=== PATIENT | female | born 1960 | race Two or more races ===

== ENCOUNTER 2018-06-05 18:14 | Emergency (ER) | payer SELFPAY ==
[~2018-06-05] VITALS: Ht 162.6 cm; Wt 70.3 kg
[2018-06-05 18:15] VITALS: BP 149/81
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
[2018-06-05] MEDS ORDERED: TYLENOL EXTRA500 MG ORAL (19:49)
[2018-06-05 20:00] VITALS: BP 139/79
[2018-06-05 20:08] VITALS: BP 139/79
--- NOTE | 2018-06-06 08:25 | Diagnostic Imaging Report ---
Indication: Pain status post injury Technique: Continuous helical CT scanning of the head was performed utilizing automated exposure control without intravenous contrast material. Axial and coronal reconstructions were obtained. Comparison: None CT dose: Total DLP 1340.9 mGycm; CTDI vol 70.38 mGy Findings: There is no acute intracranial hemorrhage, mass effect or cortical edema. No shift of midline structures. The ventricles, cisterns and sulci are within normal limits for age. Mastoid air cells are clear. Mild sinus mucosal thickening/debris. No evidence of acute calvarial fracture. Impression: No evidence of acute intracranial hemorrhage, mass effect or cortical edema. MRI may be obtained for more sensitive evaluation as clinically indicated. No depressed calvarial fracture. Mild paranasal sinus disease. This corresponds with the statrad preliminary report. The CT scanner at [facility] is accredited by the [employer] and the scans are performed using protocols designed to limit radiation exposure to as low as reasonably achievable to attain images of sufficient resolution adequate for diagnostic evaluation.
--- NOTE | 2018-06-06 10:38 | Diagnostic Imaging Report ---
Indication: Pain status post fall Technique: XRAY Shoulder Compl L Comparison: None Findings: Bone mineralization within normal limits. There is no evidence of acute fracture. Glenohumeral and acromioclavicular joints are maintained. Imaged portions of the left lung are clear. No radiopaque foreign body identified. Impression: No acute fracture or dislocation.
== END 2018-06-05 20:09 | disposition home or self-care (01) ==
LOC: EDBD 18:14 → EMR 18:45
DX: S40.012A Contusion of left shoulder, initial encounter (principal); S00.93XA Contusion of unspecified part of head, initial encounter; S40.022A Contusion of left upper arm, initial encounter; V79.3XXA Bus occupant (driver) (passenger) injured in unspecified nontraffic accident, initial encounter; Y92.488 Other paved roadways as the place of occurrence of the external cause; R11.0 Nausea; R42 Dizziness and giddiness
CPT/HCPCS: 70450; 99284